=== PATIENT | male | born 1955 | race Two or more races ===

== ENCOUNTER → 2023-01-15 | Outpatient (CLI) | payer MEDICARE | END | disposition home or self-care (01) | LOC: MSC 12:15 | PROVIDERS: ATTEND Anesthesiology | DX: G89.4 Chronic pain syndrome (principal); M54.12 Radiculopathy, cervical region; M54.16 Radiculopathy, lumbar region; M40.299 Other kyphosis, site unspecified; M62.830 Muscle spasm of back; Z95.1 Presence of aortocoronary bypass graft; Z79.891 Long term (current) use of opiate analgesic ==